=== PATIENT | male | born 1965 | race Caucasian/White ===

== ENCOUNTER 2025-03-03 11:48 | Emergency (ER) | payer OTHER, SELFPAY ==
[2025-03-03] VITALS (24 sets, daily range): BP systolic 135–178; BP diastolic 86–130; PULSE 66–97; RESP 14–30; O2SAT 98–100
--- NOTE | 2025-03-03 11:45 | DI.RAD_ITS ---
Exam(s) XR PORTABLE CHEST AP EXAM: XR PORTABLE CHEST AP CLINICAL HISTORY: syncope TECHNIQUE: 2D digital imaging was performed of the chest. Two images were obtained. AP views were obtained. COMPARISON: No exams were available for comparison FINDINGS: MEDIASTINUM: Normal. HEART: Normal. PULMONARY VASCULATURE: Normal. LUNGS: Clear. PLEURAL SPACE: No pleural effusion or pneumothorax. BONE:Within normal limits for the patient's age. OTHER FINDINGS:Normal. IMPRESSION: 1. No acute pulmonary findings. 2. The preliminary [facility] report was reviewed. DATA REPOSITORY: RADIATION DOSE DELIVERED:
--- NOTE | 2025-03-03 11:45 | RT.EKG_ITS ---
APPROVED REPORT Exam: Resting ECG Reason for Exam: Syncopal episode Patient Location: E HR:73 bpm ECG Measurements Heart Rate 73 AXIS VT 168 P 74 QRSd 90 QRS 24 QT 412 T 30 QTc 452 Conclusion Sinus rhythm...normal P axis, V-rate 60- 99 Atrial premature complex...SV complex w/ short R-R interval No STEMI
[2025-03-03 12:33] LABS: Abs Immature Grans 0.03 10^3/uL (0.0-0.06); HCT 47.4 % (40.0-50.0); HGB 15.9 g/dL (13.5-17.5); Immature Grans % 0.4 %; MCH 28.8 pg (27.0-33.0); MCHC 33.5 % (32.0-36.0); MCV 86 fL (80-95); MPV 9.4 fL (8.0-11.0); Platelet Count 202 10^3/uL (130-400); RBC 5.53 10^6/uL (4.36-5.78); RDW 12.9 % (11.8-14.1); RDW-SD 40.1 fL; WBC 8.52 10^3/uL (4.4-10.8)
[2025-03-03 12:49] LABS: INR 1.1 (0.9-1.1); PTT Activated 25.2 sec (20.6-30.2); Prothrombin Time 10.9 sec (9.1-11.1)
[2025-03-03 13:02] LABS: ALT 17 U/L (16-63); AST 14 U/L (15-37); Albumin 4.1 g/dL (3.4-5.0); Alkaline Phosphatase 68 U/L (46-116); Anion Gap 6.3 mmol/L (3-11); BUN 19 mg/dL (7-18); Bilirubin, Total 0.8 mg/dL (0.2-1.0); CO2 29.7 mmol/L (21.0-32.0); Calcium 9.3 mg/dL (8.5-10.1); Chloride 101 mmol/L (98-107); Estimated GFR 77.33 (mL/min/1.73m2); Glucose 155 mg/dL (74-106); Magnesium 2.2 mg/dL (1.8-2.4); NT-proBNP 14 pg/mL (<300); Potassium 3.9 mmol/L (3.5-5.1); Sodium 137 mmol/L (136-145); Total Protein 7.3 g/dL (6.4-8.2); Troponin I 5 ng/L (<or=76)
[2025-03-03] MEDS: Normal Saline 1,000 ML 1000 ML IV (13:08)
[2025-03-03 13:59] LABS: Troponin I 5 ng/L (<or=76)
--- NOTE | 2025-03-03 14:00 | DI.[facility]_ITS ---
PROCEDURE INFORMATION: Exam: XR Chest Exam date and time: 03/03/2025 12:16 PM Age: 59 years old Clinical indication: Syncope TECHNIQUE: Imaging protocol: Radiologic exam of the chest. Views: 1 view. COMPARISON: No relevant prior studies available. FINDINGS: Lungs: No consolidation. Pleural spaces: No pleural effusion. No pneumothorax. Heart/Mediastinum: Unremarkable. No cardiomegaly. Bones/joints: Unremarkable. IMPRESSION: No acute findings. Dictated and Authenticated by: Juju West MD. Orderin Melanie Crawford MD
--- NOTE | 2025-03-03 14:07 | W.ED.GENAD ---
Discharge Plan Disposition Patient Disposition: Home Discharge Details Clinical Impression: Vasovagal syncope Primary Care Provider: Zafar Rock ED Provider: Ty Navarro Home Meds and New Rx's Prescriptions: No Action metoprolol succinate 25 mg tablet extended release 24 hr 25 mg PO DAILY Discharge Instructions Instructions: Syncope (Fainting) (DC) Additional Instructions: Please follow-up with your primary care provider regarding your visit to the emergency department today. Be sure to discuss results of all test performed here today to include radiology, and laboratory testing as well as results for any pending cultures. Should your symptoms worsen, or if you develop new concerning symptoms, please return immediately emergency department for further evaluation. HPI General Date/Time Provider Initiated Documentation: 03/03/25 11:51. HPI Narrative: MDM/Narrative: Initial Assessment: 59-year-old male with syncope, likely vasovagal syncope triggered by gastrointestinal issues. Differential Diagnosis: - Vasovagal syncope: Symptoms consistent. Plan: Blood work, chest x-ray. - Cardiac injury: EKG shows PVCs, no signs of injury. Plan: Blood work, review echocardiogram. - Lung-related issues: Chest x-ray to rule out. ED Course: - EKG: PVCs. - Blood work obtained. - Chest x-ray ordered. - Lactate level 2.5. - Saline administered. - Reviwed TTE results from [facility] on 10/19/24, which showed no abnormality. Final Assessment: Symptoms suggest vasovagal syncope triggered by gastrointestinal issues. EKG reassuring, showing PVCs. Blood work and chest x-ray ordered. Clinical Impression: - Vasovagal syncope Disposition: - Follow-Up: Multimedia Author Patient Education: Discussed vasovagal syncope and triggers. Explained vagus nerve and rest and digest response. Advised to monitor symptoms and follow up with canvas [facility]. This document was created with assistance from [employer]. The patient consented to its use. HPI: The patient is a 59-year-old male with a history of atrial fibrillation (AFib), premature ventricular contractions (PVCs), and premature atrial contractions (PACs), presenting with syncope. This morning, the patient experienced nausea and presyncope while in the bathroom, with a recorded heart rate of 41 bpm per his watch. Subsequently, he experienced syncope during a roman catholic service after prolonged standing, with his heart rate increasing to 120 bpm. He was unresponsive for several minutes, exhibited rigidity in his arms, and slumped over. Upon regaining consciousness, he was disoriented and diaphoretic. He did not report any chest pain during these episodes. The patient has a recent history of pharyngitis, rhinorrhea, and cough. Currently, he reports a mild cough with sputum production. He denies vomiting or diarrhea but notes loose stools. He occasionally experiences neck pressure when sitting or reclining and lightheadedness upon standing. He monitors his heart rate with a watch and performs daily electrocardiograms (ECGs). He has no history of myocardial infarction or thromboembolic events. He reports no known pulmonary, renal, or hepatic issues. He has not had a bowel movement since the roman catholic incident. A normal echocardiogram was obtained last year. He occasionally experiences chest vibrations when leaning back. The patient has tried various treatments for gastroesophageal reflux disease (GERD) without success. He sometimes feels that acid reaches the back of his throat, affecting his breathing. ROS: Negative besides as mentioned above Exam: Vital signs: Reviewed. General Appearance: Alert and oriented. No acute distress. HEENT: NCAT, EOMI, not icteric. External ears normal. No rhinorrhea. Moist mucous membranes. Neck: No occipital tenderness. Respiratory: Lungs clear bilaterally. Cardiovascular: Normal heart sounds, no murmurs, rubs, or gallops. Gastrointestinal: No abdominal tenderness. Skin: Warm and dry, no rash. Neurological: Normal Gait, Grossly intact. Psychiatric: Appropriate for situation. Rhythm: NSR Rate: 73 [place]el: Normal axis Intervals: Normal intervals Other findings: No acute ST segment or T wave changes to suggest acute ischemia. Labs: Laboratory Tests Range/Units 03/03/25 03/03/25 03/03/25 12:20 13:18 13:50 WBC (4.4-10.8) 10^3/uL 8.52 RBC (4.36-5.78) 10^6/uL 5.53 Hgb (13.5-17.5) g/dL 15.9 Hct (40.0-50.0) % 47.4 MCV (80-95) fL 86 MCH (27.0-33.0) pg 28.8 MCHC (32.0-36.0) % 33.5 RDW (11.8-14.1) % 12.9 Plt Count (130-400) 10^3/uL 202 MPV (8.0-11.0) fL 9.4 Immature Gran % % 0.4 Neutrophils % % 90.6 Lymphocytes % % 4.7 Monocytes % % 3.4 Eosinophils % % 0.7 Basophils % % 0.2 Nucleated RBC % (0.0-0.3) % 0.0 Absolute Neutrophils (1.2-6.7) 10^3/uL 7.72 H Absolute Lymphocytes (1.2-3.4) 10^3/uL 0.40 L Absolute Monocytes (0.1-0.8) 10^3/uL 0.29 Absolute Eosinophils (0.0-0.7) 10^3/uL 0.06 Absolute Basophils (0.0-0.2) 10^3/uL 0.02 PT (9.1-11.1) sec 10.9 INR (0.9-1.1) 1.1 APTT (20.6-30.2) sec 25.2 VBG Lactate (<or=2.0) mmol/L 2.5 H* 2.0 Sodium (136-145) mmol/L 137 Potassium (3.5-5.1) mmol/L 3.9 Chloride (98-107) mmol/L 101 Carbon Dioxide (21.0-32.0) mmol/L 29.7 Anion Gap (3-11) mmol/L 6.3 BUN (7-18) mg/dL 19 H Creatinine (0.70-1.30) mg/dL 1.1 Est GFR (CKD-EPI 2020) (mL/min/1.73m2) 77.33 Glucose (74-106) mg/dL 155 H Calcium (8.5-10.1) mg/dL 9.3 Magnesium (1.8-2.4) mg/dL 2.2 Total Bilirubin (0.2-1.0) mg/dL 0.8 AST (15-37) U/L 14 L ALT (16-63) U/L 17 Alkaline Phosphatase (46-116) U/L 68 Troponin I (<or=76) ng/L 5 5 NT-Pro-B Natriuret Pep (<300) pg/mL 14 Total Protein (6.4-8.2) g/dL 7.3 Albumin (3.4-5.0) g/dL 4.1 ABO/Rh A Positive Antibody Screen NEGATIVE Radiology: CXR 1 view: No acute disease as read by me. Related Data Home Medications ?Medication ?Instructions ?Recorded ?Confirmed metoprolol succinate 25 mg 25 mg PO DAILY 03/03/25 03/03/25 tablet,extended release 24 hr Allergies Allergy/AdvReac Type Severity Reaction Status Date / Time Penicillins Allergy Unknown Other (See Verified 03/03/25 11:59 Comment) General Stated Complaint: Dizzy/Sync BRANDON: 3 Course Vital Signs Vital signs: Vital Signs Pulse 75 03/03/25 11:52 Respiratory Rate 16 03/03/25 11:52 Blood Pressure 178/107 H 03/03/25 11:52 Pulse Oximetry 99 03/03/25 11:52 Temperature Source Tympanic 03/03/25 11:52 Pulse 97 H 03/03/25 13:50 Pulse 96 H 03/03/25 13:50 Respiratory Rate 17 03/03/25 13:50 Respiratory Effort Normal 03/03/25 13:52 Respiratory Depth Normal 03/03/25 13:52 Respiratory Pattern Normal 03/03/25 13:52 Blood Pressure 136/93 H 03/03/25 13:46 Blood Pressure Mean 106 03/03/25 13:46 Blood Pressure Position Sitting 03/03/25 11:52 Pulse Oximetry 100 03/03/25 13:50 Oxygen Delivery Method Room Air 03/03/25 11:52 Oxygen Flow Rate 0 03/03/25 11:52 Pain Level 0 03/03/25 11:52 Lab/Test Results Lab/Test Results: Laboratory Tests Range/Units 03/03/25 03/03/25 03/03/25 12:20 13:18 13:50 WBC (4.4-10.8) 10^3/uL 8.52 RBC (4.36-5.78) 10^6/uL 5.53 Hgb (13.5-17.5) g/dL 15.9 Hct (40.0-50.0) % 47.4 MCV (80-95) fL 86 MCH (27.0-33.0) pg 28.8 MCHC (32.0-36.0) % 33.5 RDW (11.8-14.1) % 12.9 Plt Count (130-400) 10^3/uL 202 MPV (8.0-11.0) fL 9.4 Immature Gran % % 0.4 Neutrophils % % 90.6 Lymphocytes % % 4.7 Monocytes % % 3.4 Eosinophils % % 0.7 Basophils % % 0.2 Nucleated RBC % (0.0-0.3) % 0.0 Absolute Neutrophils (1.2-6.7) 10^3/uL 7.72 H Absolute Lymphocytes (1.2-3.4) 10^3/uL 0.40 L Absolute Monocytes (0.1-0.8) 10^3/uL 0.29 Absolute Eosinophils (0.0-0.7) 10^3/uL 0.06 Absolute Basophils (0.0-0.2) 10^3/uL 0.02 PT (9.1-11.1) sec 10.9 INR (0.9-1.1) 1.1 APTT (20.6-30.2) sec 25.2 VBG Lactate (<or=2.0) mmol/L 2.5 H* 2.0 Sodium (136-145) mmol/L 137 Potassium (3.5-5.1) mmol/L 3.9 Chloride (98-107) mmol/L 101 Carbon Dioxide (21.0-32.0) mmol/L 29.7 Anion Gap (3-11) mmol/L 6.3 BUN (7-18) mg/dL 19 H Creatinine (0.70-1.30) mg/dL 1.1 Est GFR (CKD-EPI 2020) (mL/min/1.73m2) 77.33 Glucose (74-106) mg/dL 155 H Calcium (8.5-10.1) mg/dL 9.3 Magnesium (1.8-2.4) mg/dL 2.2 Total Bilirubin (0.2-1.0) mg/dL 0.8 AST (15-37) U/L 14 L ALT (16-63) U/L 17 Alkaline Phosphatase (46-116) U/L 68 Troponin I (<or=76) ng/L 5 5 NT-Pro-B Natriuret Pep (<300) pg/mL 14 Total Protein (6.4-8.2) g/dL 7.3 Albumin (3.4-5.0) g/dL 4.1 ABO/Rh A Positive Antibody Screen NEGATIVE PFSH All Active Problems (Updated 03/03/25 @ 14:11 by Ty Navarro MD) Vasovagal syncope (Acute) Social History Smoking/Tobacco Use Status: Never Smoking risk assessment performed?: Yes Alcohol Intake: never Drug use: Never Substance use type: does not use Do you feel safe at home: Yes Do you feel safe in your relationship?: Yes
== END 2025-03-03 14:19 | disposition home or self-care (01) ==
PROVIDERS: Emergency Provider General Practice; PCP Family Medicine
DX: R55 Syncope and collapse (principal)
CPT/HCPCS: 99285; 99283; 80053; 86850; 86900; 86901; 93005; 71045; 83605; 83735; 83880; 84484; 85025; 85610; 85730; 93010

== ENCOUNTER 2025-03-06 13:51 | Emergency (ER) | payer OTHER, SELFPAY ==
[2025-03-06 13:56] VITALS: BP 137/86; PULSE 94; RESP 18; TEMP 36.6; O2SAT 98
--- NOTE | 2025-03-06 14:07 | W.ED.GENAD ---
Discharge Plan Disposition Patient Disposition: Home Discharge Details Clinical Impression: Malaise Primary Care Provider: Zafar Rock ED Provider: Cristhian Gauthier Home Meds and New Rx's Prescriptions: Continued metoprolol succinate 25 mg tablet extended release 24 hr 25 mg PO DAILY Discharge Instructions Additional Instructions: You were seen in the emergency department for your feelings of fatigue and your elevated heart rate at home. Your EKG shows that your heart is in a normal rhythm. Your blood work shows your kidneys are working well and you have no sign of an infection. As we discussed if you do not urinate at least once every 8 hours while you are awake or if you have any other concerns please return to the emergency department. Otherwise please follow-up with your primary care provider next week. We will call you if either your alignment test or tickborne test are positive or if your urinalysis shows signs of infection. If you do not hear from us no news is good news. Discharge Data Discharge Date/Time-TO BE ENTERED AT DEPARTURE: 03/06/25 16:16 HPI General Date/Time Provider Initiated Documentation: 03/06/25 14:07. HPI Narrative: MDM This is an overall quite well-appearing normothermic and not tachycardic 59-year-old previously healthy male with generalized weakness and preceding URI symptoms for which patient will undergo chest x-ray and laboratory assessment in the setting of complaints of dehydration. Patient has moist mucous membranes and has not been vomiting however will provide 1 L of IV fluids. Patient has a history of atrial fibrillation so we will obtain ECG to ensure he is not in atrial fibrillation at the moment. I considered sepsis as patient does have a heart rate greater than 90 but in the absence of fevers and systemic symptoms I feel that the risks of broad-spectrum antibiotics and blood cultures outweigh the benefits so I did not order these nor a lactate. Patient has a soft nontender abdomen so I am not suspicious for intra-abdominal infection. Specifically no right lower quadrant tenderness to suggest appendicitis. Patient has had some episodes of diarrhea however has no left lower quadrant tenderness to suggest diverticulitis. No pain out of proportion to suggest necrotizing soft tissue infection. No dysuria nor frequency to suggest UTI. No rash to abdomen to suggest zoster. No headache to suggest subarachnoid hemorrhage. Patient has no posterior oropharynx erythema to suggest strep pharyngitis. Uvula midline so doubt peritonsillar abscess. Good range of motion in neck making my suspicion low for meningitis. Will provide 1 L of IV fluids and reassess. 303 PM Labs notable for left shift and lymphocytosis. No leukopenia. No anemia. No thrombocytopenia. I inquired as to whether or not patient had had any recent tick bites. He reported that in the spring he had been bitten by ticks. Subsequently he had had tickborne testing which was reportedly negative. He has had no further tick bites and no further exposure to the hernandez. Nonetheless some so concerned about the possibility of a tickborne disease so we will send tickborne panel but delay empiric treatment given no erythema migrans. 3:15 PM ECG showing narrow complex normal sinus rhythm at a rate of 67. Normal axis. Intervals within normal limits. Poor R wave progression. No acute injury pattern. Compared to prior dated earlier this week no acute changes. No ST segment abnormalities. 3:35 PM Comprehensive the metabolic panel showing no MITCH. Mild hyperglycemia but no anion gap and normal bicarbonate?test not consistent with DKA. Will complete ambulatory trial and repeat vital signs. 3:52 PM Chest x-ray with no acute cardiopulmonary process. Patient ambulated well in the emergency department. He did not become tachycardic nor hypoxic. His COVID swab was negative. He did not have influenza nor RSV. Patient, his mom and I discussed strict return indications including any weakness any feelings of presyncope or any fevers. Will defer doxycycline at this point in time while his tickborne panel is processing. I advised outpatient PCP follow-up next week. HPI This is a patient with a history of paroxysmal atrial fibrillation presenting with presyncope and upper respiratory symptoms. The patient experienced [place] episode in [place] 03[place]03[place], which was attributed to dehydration. Today, the patient reports similar symptoms, including an elevated heart rate, fatigue, and loss of appetite. The patient reports no recent fever or cough, although there was a slight fever a few days ago. The patient has been dealing with a viral infection since early last week, characterized by coughing, sneezing, and a sore throat. The patient also reports intermittent diarrhea but no significant stomach upset. The patient's appetite fluctuates, with periods of good and poor appetite alternating every two days. 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 The patient lives alone and reports no urinary burning, abdominal pain, or chest pain. The patient feels weak, with an elevated heart rate reaching around 100 beats per minute during the journey to the clinic and up to 120 beats per minute when standing in the living room. The patient has been monitoring heart rate using a watch for the past six months. The patient has a history of occasional atrial fibrillation (AFib), occurring approximately once a year, and premature ventricular contractions (PVCs) and premature atrial contractions (PACs), which vary in frequency. The patient is not currently on any blood thinners. When experiencing AFib, the patient typically undergoes cardioversion and takes blood thinners for 30 days post-procedure. The last episode was several months ago. Exam General: Well-appearing in no acute distress speaking in complete sentences. Head: Normocephalic, atraumatic. Eye: Extraocular eye movements intact. No conjunctival injection. No scleral icterus. Ear, nose, mouth, throat: Grossly normal inspection. Normal voice, handling secretions normally. Moist mucous membranes. Uvula midline. Neck: Trachea midline. Cardiovascular: Well-perfused distal extremities. Regular rate and rhythm. Respiratory: Nonlabored respiration. Clear lungs bilaterally. Gastrointestinal: Nondistended abdomen. Soft. Nontender. No rebound. No guarding. Musculoskeletal: No edema. Moving all 4 extremities spontaneously. Skin: Normal for age and race, grossly normal temperature and turgor. No acute rash. Neurologic: Alert and appropriate, no apparent acute deficits. Psychiatric: Mood and manner are appropriate. Grooming and personal hygiene are appropriate. Related Data Home Medications ?Medication ?Instructions ?Recorded ?Confirmed metoprolol succinate 25 mg 25 mg PO DAILY 03/03/25 03/06/25 tablet,extended release 24 hr Allergies Allergy/AdvReac Type Severity Reaction Status Date / Time Penicillins Allergy Unknown Other (See Verified 03/06/25 14:00 Comment) General Stated Complaint: [employer] BRANDON: 3 Course Vital Signs Vital signs: Vital Signs Temperature 36.6 C 03/06/25 13:56 Pulse 94 H 03/06/25 13:56 Respiratory Rate 18 03/06/25 13:56 Blood Pressure 137/86 03/06/25 13:56 Pulse Oximetry 98 03/06/25 13:56 Temperature 36.6 C 03/06/25 13:56 Pulse 94 H 03/06/25 13:56 Respiratory Rate 18 03/06/25 13:56 Blood Pressure 137/86 03/06/25 13:56 Pulse Oximetry 98 03/06/25 13:56 Oxygen Delivery Method Room Air 03/06/25 13:56 Oxygen Flow Rate 0 03/06/25 13:56 Pain Level 0 03/06/25 13:56 PFSH All Active Problems (Updated 03/06/25 @ 16:00 by Cristhian Gauthier MD) Malaise (Acute) Vasovagal syncope (Acute) Social History Smoking/Tobacco Use Status: Never Smoking risk assessment performed?: Yes Alcohol Intake: never Drug use: Never Substance use type: does not use Do you feel safe at home: Yes Do you feel safe in your relationship?: Yes
--- NOTE | 2025-03-06 14:15 | DI.RAD_ITS ---
Exam(s) XR CHEST 2V PA LATERAL EXAM: XR CHEST 2V PA LATERAL CLINICAL HISTORY: Generalized weakness TECHNIQUE: 2D digital imaging was performed. Two views. COMPARISON: CR,XR XR PORTABLE CHEST AP from 03/03/2025 FINDINGS: HEART: Normal size. Aorta: Not dilated. PULMONARY VASCULATURE: Normal. MEDIASTINUM: Unremarkable. LUNGS: Clear. PLEURAL SPACE: No pleural effusion or pneumothorax. BONE:Pectus excavatum deformity. SOFT TISSUES: Unremarkable. IMPRESSION: No acute abnormality. DATA REPOSITORY: RADIATION DOSE DELIVERED:
--- NOTE | 2025-03-06 14:15 | RT.EKG_ITS ---
APPROVED REPORT Exam: Resting ECG Reason for Exam: Weakness Patient Location: E HR:67 bpm ECG Measurements Heart Rate 67 AXIS MO 179 P 89 QRSd 80 QRS 37 QT 393 T 15 QTc 416 Conclusion Sinus rhythm...normal P axis, V-rate 60- 99 Left atrial enlargement...P, P'>60mS, <-0.15mV V1 Anterior infarct, old...Q >40mS, abnormal ST-T, V2-V5 No Occlusion GA
[2025-03-06] MEDS: Normal Saline 1,000 ML 1000 ML IV (14:43)
[2025-03-06 14:55] LABS: Abs Immature Grans 0.08 10^3/uL (0.0-0.06); HCT 45.6 % (40.0-50.0); HGB 15.6 g/dL (13.5-17.5); Immature Grans % 1.0 %; MCH 28.8 pg (27.0-33.0); MCHC 34.2 % (32.0-36.0); MCV 84 fL (80-95); MPV 9.1 fL (8.0-11.0); Platelet Count 232 10^3/uL (130-400); RBC 5.42 10^6/uL (4.36-5.78); RDW 12.9 % (11.8-14.1); RDW-SD 39.7 fL; WBC 8.06 10^3/uL (4.4-10.8)
[2025-03-06 14:56] VITALS: RESP 20
[2025-03-06 15:20] LABS: ALT 18 U/L (16-63); AST 15 U/L (15-37); Albumin 3.6 g/dL (3.4-5.0); Alkaline Phosphatase 66 U/L (46-116); Anion Gap 9.2 mmol/L (3-11); BUN 12 mg/dL (7-18); Bilirubin, Total 0.9 mg/dL (0.2-1.0); CO2 25.8 mmol/L (21.0-32.0); Calcium 9.1 mg/dL (8.5-10.1); Chloride 102 mmol/L (98-107); Estimated GFR 77.33 (mL/min/1.73m2); Glucose 173 mg/dL (74-106); Potassium 3.6 mmol/L (3.5-5.1); Sodium 137 mmol/L (136-145); Total Protein 6.5 g/dL (6.4-8.2)
[2025-03-06 15:46] LABS: COVID-19 PCR Negative (Negative); RSV PCR Negative (Negative)
[2025-03-06 16:05] VITALS: BP 130/68; PULSE 84; RESP 18; TEMP 36.4; O2SAT 97
[2025-03-06 18:49] LABS: Lab Add On Test DONE
[2025-03-08 11:02] LABS: Lyme Ab w Rflx to Lyme Confirm Negative (Negative)
[2025-03-09 21:36] LABS: B. miyamotoi PCR Negative (Negative); Babesia divergens/MO-1 Negative (Negative); Ehrlichia muris eauclairensis Negative (Negative)
--- NOTE | 2025-03-10 13:09 | NUR.NOTE ---
Access chart to determine antibiotic on discharge for lyme antibody test results. Given to provider for review. Nursing Note:
== END 2025-03-06 16:16 | disposition home or self-care (01) ==
PROVIDERS: Emergency Provider Emergency Medicine; PCP Family Medicine
DX: R53.81 Other malaise (principal); Q67.6 Pectus excavatum
CPT/HCPCS: 36415; 80053; 87637; 87798; 93005; 99284; 71046; 81003; 85025; 86618; 93010